=== PATIENT | male | born 2000 | race Caucasian/White ===

== ENCOUNTER 2024-12-28 10:27 | Inpatient (IN) | payer MEDICAID ==
[~2024-12-28] VITALS: Ht 170.2 cm; Wt 54.9 kg
[2024-12-28] MEDS: LIDOCAINE HCL/PF 1% 10 MG/ML 5ML VIAL INFIL ONE (11:15)
[2024-12-28] MEDS: ACETAMINOPHEN 325MG TABLET PO ONE (11:39)
[2024-12-28] MEDS: TETANUS, DIPHTHERIA, PERTUSSIS VAC/PF 0.5ML (>10YR OLD) IM ONE (12:30)
[2024-12-28 13:00] LABS: HEMOGLOBIN. 16.8 g/dL (14.0-18.0)
[2024-12-28 13:01] LABS: BASOPHILS % 0.6 % (0.0-2.0); EOSINOPHILS % 3.9 % (0.0-5.0); HEMATOCRIT. 49.6 % (42.0-52.0); LYMPHOCYTES % 34.3 % (20.0-50.0); MEAN CORPUSCULAR HEMOGLOBIN 31.2 pg (28.0-32.0); MEAN CORPUSCULAR HGB CONC 33.9 g/dL (31.0-37.0); MEAN CORPUSCULAR VOLUME 91.9 fL (80.0-94.0); MEAN PLATELET VOLUME 8.8 fl (7.4-10.4); MONOCYTES % 9.8 % (2.0-8.0); NEUTROPHILS % 51.4 % (40.0-76.0); PLATELET 276 x1000/uL (130-400); RED CELL DISTRIBUTION WIDTH 13.3 % (11.6-14.6)
[2024-12-28 13:34] LABS: CHLORIDE 109 mEq/L (98-107); POTASSIUM 3.5 mEq/L (3.5-5.1); SODIUM 144 mEq/L (136-145)
[2024-12-28 13:35] LABS: CALCIUM 8.7 mg/dL (8.7-10.4); CARBON DIOXIDE 22 mEq/L (21-32)
[2024-12-28 13:40] LABS: CREATININE 0.6 mg/dL (0.6-1.3); GLUCOSE 92 mg/dL (70-105); UREA NITROGEN BLOOD 8 mg/dL (9-23)
[2024-12-28] MEDS: CEFAZOLIN 2GM/100ML 100 ML IV SCH (13:41)
[2024-12-28] MEDS: KETOROLAC 30MG/ML VIAL IV ONE (14:26)
[2024-12-28] MEDS ORDERED: ONDANSETRON HCL 4MG/2ML INJ IV PRN (17:45)
[2024-12-28 18:00] VITALS: BP 117/78; PULSE 78; RESP 18; TEMP 36.8
[2024-12-28] MEDS ORDERED: NALOXONE HCL 0.4MG/ML VIAL IV PRN (18:00)
[2024-12-28] MEDS: HYDROCODONE/ACETAMINOPHEN 5/325MG TABLET PO PRN (18:04)
[2024-12-28] MEDS ORDERED: PNEUMOCOCCAL 20-VAL CONJ-DIP CRM 0.5ML IM ONE (19:15)
[2024-12-28 19:40] LABS: HEPATITIS B SURFACE ANTIGEN NEGATIVE (Negative)
[2024-12-28 20:00] VITALS: BP 116/79; PULSE 76; RESP 18; TEMP 36.1; O2SAT 99
[2024-12-28 20:01] LABS: HEPATITIS C AB NON REACTIVE (Neg) (Negative)
[2024-12-29] VITALS (7 sets, daily range): BP systolic 104–123; BP diastolic 66–82; PULSE 53–72; RESP 17–20; TEMP 36.1–36.8; O2SAT 98–100
== END 2024-12-29 19:21 | disposition home or self-care (01) | DRG 951 ==
LOC: ER 10:27 → 7EST 15:41 → EDBD 15:41 → EDBEDREQ 15:53 → EDBEDREQTM 15:53 → ENRESERV 16:11
PROVIDERS: ADMIT Internal Medicine; ATTEND Internal Medicine
PROC: 0XQVXZZ Repair Right Little Finger, External Approach (ICD-10-PCS; principal; 2024-12-28)
DX: S62.606B Fracture of unspecified phalanx of right little finger, initial encounter for open fracture (principal); F10.129 Alcohol abuse with intoxication, unspecified; X58.XXXA Exposure to other specified factors, initial encounter; Y90.9 Presence of alcohol in blood, level not specified; Y93.89 Activity, other specified; Y92.89 Other specified places as the place of occurrence of the external cause; Y99.8 Other external cause status
CPT/HCPCS: 36415; 73120; 80048; 80320; 85025; 86705; 87340; 90715; 99285; J0690; J1885; J2003; G0480